=== PATIENT | female | born 1985 | race Caucasian/White ===

== ENCOUNTER → 2021-09-19 | Outpatient (CLI) | payer OTHER ==
--- NOTE | 2021-09-19 15:03 | MM ---
Reason for Exam: Clinical finding. Baseline mammogram. Patient History: Menarche at age 9. First Full-Term at age 25. Hormonal Contraceptives for 6 months starting at age 14. Last menstrual period: 08/24/2021 Risk Values: Bobbi 5 year model risk: 0.5%. NCI Lifetime model risk: 12.3%. Prior Study Comparison: Patient's first Mammogram. No prior studies available for comparison. Tissue Density: The breast tissue is heterogeneously dense. This may lower the sensitivity of mammography. Findings: Analyzed By CAD. Palpable marker along the upper outer quadrant of the right breast. No significant mass, suspicious microcalcification, or other discrete abnormality is seen. Some regional punctate calcifications are present anteriorly on the left. Overall Assessment: Incomplete: need additional imaging evaluation, BI-RAD 0 Management: Diagnostic Breast Ultrasound of the right breast. Targeted to the upper-outer quadrant right breast palpable site. Electronically signed and approved by: Wendi Khan M.D. Radiologist
--- NOTE | 2021-09-19 15:53 | USB ---
Reason for Exam: Clinical finding. Patient History: Menarche at age 9. First Full-Term at age 25. Hormonal Contraceptives for 6 months starting at age 14. Risk Values: Bobbi 5 year model risk: 0.5%. NCI Lifetime model risk: 12.3%. Technique: Method: Whole Breast Handheld. Findings: The whole breast of the right breast, the axilla of the right breast and the retroareolar of the right breast were scanned. Whole right breast ultrasound including scanning of the subareolar region and axilla. Particular attention to the patient's 10:00 palpable site. Dense tissues present here. No solid or cystic lesion or axillary lymphadenopathy.. Overall Assessment: Negative, BI-RAD 1 Management: Screening Mammogram of both breasts at age 38. 1. Patient should continue monthly self breast exams. 2. A clinical breast exam by your physician is recommended on an annual basis. 3. This exam should not preclude additional follow-up of suspicious palpable abnormalities. Electronically signed and approved by: Wendi Khan M.D. Radiologist
== END | disposition home or self-care (01) ==
LOC: RADMAMWWP 14:03
PROVIDERS: ATTEND Family Medicine
DX: N63.10 Unspecified lump in the right breast, unspecified quadrant (principal)
CPT/HCPCS: 77062; 77066